=== PATIENT | male | born 1975 | race Caucasian/White ===

== ENCOUNTER 2023-02-28 11:41 | Emergency (ER) | payer OTHER ==
[~2023-02-28] VITALS: Ht 165.1 cm; Wt 95.3 kg
[2023-02-28] MEDS ORDERED: IBUPROFEN600 MG PO (13:14)
== END 2023-02-28 13:26 | disposition home or self-care (01) ==
LOC: ER 11:42
DX: S42.291A Other displaced fracture of upper end of right humerus, initial encounter for closed fracture (principal); W19.XXXA Unspecified fall, initial encounter; Y93.89 Activity, other specified; Y92.89 Other specified places as the place of occurrence of the external cause; Y99.8 Other external cause status; M25.511 Pain in right shoulder

== ENCOUNTER 2024-12-19 10:20 | Outpatient (CLI) | payer OTHER ==
[~2024-12-19 10:20] MED LIST: IBUPROFEN600 MG PO
[2024-12-19 11:14] LABS: COVID-19 AG NEGATIVE (NEGATIVE)
== END 2024-12-19 10:24 | disposition home or self-care (01) ==
LOC: LAB 10:20
DX: J11.1 Influenza due to unidentified influenza virus with other respiratory manifestations (principal); Z20.828 Contact with and (suspected) exposure to other viral communicable diseases

== ENCOUNTER 2024-12-27 10:00 | Outpatient (CLI) | payer OTHER | END 2024-12-27 10:10 | disposition home or self-care (01) | LOC: PPH VACUNA 10:00 | PROVIDERS: ATTEND Emergency Medicine Pediatric Emergency Medicine | DX: Z23 Encounter for immunization (principal) ==